=== PATIENT | male | born 1970 | race Hispanic/Latino ===

== ENCOUNTER 2024-06-07 11:24 | Emergency (ER) | payer OTHER ==
[2024-06-07 13:05] LABS: Influenza A by NAA Not Detected (NotDetected); Influenza B by NAA Not Detected (NotDetected); SARS-CoV-2 NAA Rapid Test DETECTED (NotDetected)
[2024-06-07] MEDS ORDERED: Ketorolac Tromethamine 30 MG (1 mL) VIAL ONE (13:23)
[2024-06-07] MEDS ORDERED: predniSONE 20 MG TAB ONE (13:24)
[2024-06-07] MEDS ORDERED: Acetaminophen 500 MG TAB ONE (13:26)
== END 2024-06-07 13:33 | disposition home or self-care (01) ==
LOC: ERS 11:24
DX: U07.1 COVID-19 (principal); F17.210 Nicotine dependence, cigarettes, uncomplicated
CPT/HCPCS: 71046; J1885; J7512

== ENCOUNTER 2025-09-20 16:54 | Inpatient (IN) | payer OTHER ==
[~2025-09-20 16:54] MED LIST: Iopamidol-370 76% 500 ML MDV (1 ML CHARGE) ONE
[2025-09-20] MEDS ORDERED: Ondansetron PF 4 MG/2 ML Vial ONE (17:26)
[2025-09-20] MEDS ORDERED: Aspirin Chewable 81 MG TAB ONE (17:27)
[2025-09-20 18:07] LABS: #Basophils 0.07 10x3/uL (0.0-0.2); #Eosinophils 0.08 10x3/uL (0.0-0.7); #Monocytes 1.29 10x3/uL (0.11-0.59); #Neutrophils 7.53 10x3/uL (1.40-6.50); %Basophils 0.6 % (0.0-1.0); %Eosinophils 0.7 % (0.0-10.0); %Lymphocytes 22.0 % (21.0-51.0); %Monocytes 11.1 % (0.0-10.0); %Neutrophils 64.7 % (42.0-75.0); Hematocrit 41.8 % (42.0-52.0); Hemoglobin 13.9 g/dL (14.0-18.0); Mean Corpuscular Hemoglobin 32.2 pg (27.0-31.0); Mean Corpuscular Volume 96.8 fL (78.0-98.0); Platelet Count 264 10x3/uL (130-400); Red Blood Cell (RBC) Count 4.32 mill/uL (4.70-6.10); White Blood Cell (WBC) Count 11.63 10x3/uL (4.8-10.8)
[2025-09-20 18:10] LABS: Magnesium 1.8 mg/dL (1.6-2.6)
[2025-09-20 18:11] LABS: ALT (SGPT) 26 U/L (Less than 45); AST (SGOT) 30 U/L (11-34); Albumin 4.4 g/dL (3.1-4.5); Alkaline Phosphatase 70 U/L (40-110); Anion Gap 17 mmol/L (10-20); BUN (Urea Nitrogen) 21 mg/dL (8.4-25.7); Bilirubin, Total 0.4 mg/dL (0.3-1.2); Calc. Creatinine Clearance 0 mL/min (70-130); Calcium 9.4 mg/dL (7.8-10.44); Carbon Dioxide 20 mmol/L (22-29); Chloride 107 mmol/L (98-107); Globulin 3.8 g/dL (2.4-3.5); Glucose 88 mg/dL (70-105); Lipase 39 U/L (8-78); Potassium 4.6 mmol/L (3.5-5.1); Sodium 139 mmol/L (136-145)
[2025-09-20 19:12] LABS: INR-International Normal Ratio 1.0; Prothrombin Time 13.6 sec (12.0-14.7)
[2025-09-20 19:13] LABS: PTT 30.9 sec (22.9-36.1)
[2025-09-20 19:15] LABS: D-Dimer Test Less than 0.27 mcg/mL (0.27-0.43)
[2025-09-20] MEDS ORDERED: Calcium Carbonate 500 MG ChewTAB PO PRN (21:58)
[2025-09-20] MEDS ORDERED: Guaifenesin DM 100-10/5 ML UDCUP PO PRN (21:58)
[2025-09-21 00:16] VITALS: BMI 26.3
[2025-09-21] MEDS ORDERED: Ondansetron PF 4 MG/2 ML Vial IVP PRN (01:12)
[2025-09-21] MEDS: Ondansetron PF 4 MG/2 ML Vial IVP SCH (01:21)
[2025-09-21] MEDS: Ketorolac Tromethamine 30 MG (1 mL) VIAL IVP SCH (01:21)
[2025-09-21 04:45] LABS: #Basophils 0.08 10x3/uL (0.0-0.2); #Eosinophils 0.31 10x3/uL (0.0-0.7); #Monocytes 1.01 10x3/uL (0.11-0.59); #Neutrophils 5.09 10x3/uL (1.40-6.50); %Basophils 0.8 % (0.0-1.0); %Eosinophils 3.1 % (0.0-10.0); %Lymphocytes 33.5 % (21.0-51.0); %Monocytes 10.2 % (0.0-10.0); %Neutrophils 51.3 % (42.0-75.0); Hematocrit 40.5 % (42.0-52.0); Hemoglobin 13.4 g/dL (14.0-18.0); Mean Corpuscular Hemoglobin 32.0 pg (27.0-31.0); Mean Corpuscular Volume 96.7 fL (78.0-98.0); Platelet Count 267 10x3/uL (130-400); Red Blood Cell (RBC) Count 4.19 mill/uL (4.70-6.10); White Blood Cell (WBC) Count 9.92 10x3/uL (4.8-10.8)
[2025-09-21 05:00] LABS: Anion Gap 14 mmol/L (10-20); BUN (Urea Nitrogen) 18 mg/dL (8.4-25.7); Calc. Creatinine Clearance 100 mL/min (70-130); Calcium 8.3 mg/dL (7.8-10.44); Carbon Dioxide 22 mmol/L (22-29); Cardiac Risk 2.8 (Less than 4.5); Chloride 109 mmol/L (98-107); Cholesterol 155 mg/dl (< 200 Desired); Glucose 103 mg/dL (70-105); HDL Cholesterol 56 mg/dL (>60 Neg Risk); LDL Cholesterol, Calculated 82 mg/dL; Potassium 3.9 mmol/L (3.5-5.1); Sodium 141 mmol/L (136-145); Triglycerides 86 mg/dL (Less than 150)
[2025-09-21] MEDS: Aspirin Chewable 81 MG TAB PO SCH (10:05)
[2025-09-21] MEDS: Enoxaparin 40 MG (0.4 mL) SYRINGE SC SCH (10:05)
[2025-09-21] MEDS: Acetaminophen 325 MG TAB PO PRN (12:21)
[2025-09-22] MEDS: Melatonin 3 MG TAB PO SCH (00:10)
[2025-09-22] MEDS: Lidocaine 2% Viscous Solution 10 ML, Aluminum & Magnesium Hydroxide 30 ML SSW SCH (03:23)
[2025-09-22] MEDS: Pantoprazole 40 MG VIAL IVP SCH (03:24)
[2025-09-22] MEDS: Ketorolac Tromethamine 30 MG (1 mL) VIAL IVP SCH (03:26)
[2025-09-22 05:14] LABS: #Basophils 0.06 10x3/uL (0.0-0.2); #Eosinophils 0.30 10x3/uL (0.0-0.7); #Monocytes 0.77 10x3/uL (0.11-0.59); #Neutrophils 3.73 10x3/uL (1.40-6.50); %Basophils 0.8 % (0.0-1.0); %Eosinophils 4.0 % (0.0-10.0); %Lymphocytes 34.5 % (21.0-51.0); %Monocytes 10.1 % (0.0-10.0); %Neutrophils 49.2 % (42.0-75.0); Hematocrit 41.5 % (42.0-52.0); Hemoglobin 14.0 g/dL (14.0-18.0); Mean Corpuscular Hemoglobin 32.6 pg (27.0-31.0); Mean Corpuscular Volume 96.7 fL (78.0-98.0); Platelet Count 250 10x3/uL (130-400); Red Blood Cell (RBC) Count 4.29 mill/uL (4.70-6.10); White Blood Cell (WBC) Count 7.59 10x3/uL (4.8-10.8)
[2025-09-22 05:41] LABS: ALT (SGPT) 13 U/L (Less than 45); AST (SGOT) 17 U/L (11-34); Albumin 3.4 g/dL (3.1-4.5); Anion Gap 9 mmol/L (10-20); BUN (Urea Nitrogen) 18 mg/dL (8.4-25.7); Bilirubin, Total 0.2 mg/dL (0.3-1.2); Calc. Creatinine Clearance 107 mL/min (70-130); Calcium 8.5 mg/dL (7.8-10.44); Carbon Dioxide 27 mmol/L (22-29); Chloride 106 mmol/L (98-107); Globulin 2.4 g/dL (2.4-3.5); Glucose 121 mg/dL (70-105); Potassium 4.2 mmol/L (3.5-5.1); Sodium 138 mmol/L (136-145)
[2025-09-22 05:49] LABS: Alkaline Phosphatase 55 U/L (40-110)
[2025-09-22 12:03] VITALS: TEMP 98.4
[2025-09-22 16:27] VITALS: BP 118/68
== END 2025-09-22 16:37 | disposition home or self-care (01) | DRG 206 ==
LOC: ERS 16:54 → 2NO 21:58 → OBSVTOIN 09-21 17:05 → MSONC 09-21 19:38
PROVIDERS: ADMIT Internal Medicine; ATTEND Hospitalist
DX: M94.0 Chondrocostal junction syndrome [Tietze] (principal); Z87.891 Personal history of nicotine dependence; I45.10 Unspecified right bundle-branch block; R79.89 Other specified abnormal findings of blood chemistry
CPT/HCPCS: 36415; 71045; 71275; 74174; 78452; 80048; 80053; 80061; 83690; 83735; 83880; 84484; 85025; 85379; 85610; 85730; 93005; 93010; 93017; 93306; 94760; 96374; 96375; A9502; J1650; J1885; J2270; J2272; J2405; J2470; J2785; Q9967

== ENCOUNTER 2025-09-26 14:30 | Outpatient (CLI) | payer OTHER | END 2025-09-26 14:31 | disposition home or self-care (01) | LOC: BICRAD 14:30 | PROVIDERS: ATTEND Nurse Practitioner Family | DX: M54.6 Pain in thoracic spine (principal) | CPT/HCPCS: 72070 ==

== ENCOUNTER 2025-10-24 13:39 | Outpatient (CLI) | payer OTHER | END 2025-10-24 13:40 | disposition home or self-care (01) | LOC: BICRAD 13:39 | PROVIDERS: ATTEND Student in an Organized Health Care Education/Training Program | DX: M13.0 Polyarthritis, unspecified (principal); M54.50 Low back pain, unspecified; M79.641 Pain in right hand; M47.816 Spondylosis without myelopathy or radiculopathy, lumbar region; M25.841 Other specified joint disorders, right hand; M77.8 Other enthesopathies, not elsewhere classified | CPT/HCPCS: 71046; 72100 ==